=== PATIENT | male | born 1990 | race Caucasian/White ===

== ENCOUNTER 2020-06-04 18:06 | Emergency (ER) | payer BC, OTHER ==
--- NOTE | 2020-06-04 18:27 | EDM.PDOC ---
ED HPI GENERAL MEDICAL PROBLEM - General Chief Complaint: Upper Extremity Injury/Pain Stated Complaint: hand injury Time Seen by Provider: 06/04/20 18:22 - History of Present Illness INITIAL COMMENTS - FREE TEXT/NARRATIVE: 30-year-old male presents the emergency room with a left hand injury.. Patient was playing basketball and was hit in the hand by a basketball. It caught his pinky finger and now it appears deformed and every time he tries to move his other fingers this 1 hurts. Patient denies any other injury associated with this most unfortunate mishap. This occurred just before arrival to the emergency room. Left Finger-Little Pain Score (Numeric/FACES): 3 - Related Data Allergies Allergy/AdvReac Type Severity Reaction Status Date / Time No Known Allergies Allergy Verified 06/04/20 18:19 Home Meds: Home Meds . [No Known Home Meds] 06/04/20 [History] Review of Systems - Review of Systems Review Of Systems: See Below Constitutional: Reports: No Symptoms Respiratory: Reports: No Symptoms Cardiovascular: Reports: No Symptoms GI/Abdominal: Reports: No Symptoms ED EXAM, GENERAL - Physical Exam Exam: See Below Exam Limited By: No Limitations General Appearance: Alert, No Apparent Distress Respiratory/Chest: No Respiratory Distress, Lungs Clear, Normal Breath Sounds Cardiovascular: Regular Rate, Rhythm, No Edema, No Murmur Extremities: Other (Examination of the left hand shows a deformity at the left pinky finger involving the proximal interphalangeal joint. This palpates like a volar dislocation. Using gentle traction this fell right back into place the patient felt much better and additionally did hurt but this resolved quickly the patient could have some active range of motion in that digit this was limited because of discomfort. This digit was sha taped to the ring finger awaiting x-rays.) Course - Vital Signs Last Recorded V/S: Last Vital Signs Temp 36.4 C 06/04/20 18:21 Pulse 88 06/04/20 18:21 Resp 18 06/04/20 18:21 BP 134/93 H 06/04/20 18:21 Pulse Ox 97 06/04/20 18:21 - Orders/Labs/Meds Orders: Active Orders 24 hr Category Date Time Status Fingers Fifth Digit Lt F4 [CR] Stat Exams 06/04/20 18:28 Ordered - Re-Assessments/Exams Free Text/Narrative Re-Assessment/Exam: 06/04/20 18:46 Appears to have a volar dislocation of the proximal interphalangeal joint of the left pinky finger. This was reduced without difficulty awaiting x-rays the patient had his digit sha taped to the ring finger after x-rays anticipate a aluminum foam splint in full extension of the PIPJ and DIPJ. 06/04/20 19:16 X-ray examination of the digit shows good alignment of the joint no obvious fracture noted. Patient will be placed in aluminum foam splint with full extension of the PIPJ and DIPJ. Departure - Departure Time of Disposition: 19:17 Disposition: Home, Self-Care 01 Clinical Impression: Closed dislocation of left little finger - Discharge Information Referrals: PCP,None [Primary Care Provider] - Forms: ED Department Discharge Additional Instructions: Return to the emergency room with any questions problems or worsening symptoms. Wear the splint at all times. Follow-up in the hospital clinic at the end of this next week for recheck call tomorrow to make an appointment [phone]. Tylenol and Motrin if needed for discomfort. Sepsis Event Note (ED) - Focused Exam Vital Signs: Vital Signs Temp Pulse Resp BP Pulse Ox 06/04/20 18:21 36.4 C 88 18 134/93 H 97 - My Orders Last 24 Hours: My Active Orders 06/04/20 18:28 Fingers Fifth Digit Lt F4 [CR] Stat - Assessment/Plan Last 24 Hours: My Active Orders 06/04/20 18:28 Fingers Fifth Digit Lt F4 [CR] Stat
--- NOTE | 2020-06-05 07:08 | CR ---
Left fifth finger: 4 views centered to the left fifth finger were obtained. Comparison: No previous finger studies available. No dislocation is appreciated. Soft tissue swelling is noted. No acute fracture or other bony abnormality is appreciated. Impression: 1. Soft tissue swelling. 2. No acute osseous finding is appreciated. Diagnostic code #2
== END 2020-06-04 19:26 | disposition home or self-care (01) ==
LOC: JD.ED 18:06
DX: S63.287A Dislocation of proximal interphalangeal joint of left little finger, initial encounter (principal); W21.05XA Struck by basketball, initial encounter; Y93.67 Activity, basketball
CPT/HCPCS: 26770; 73140-26-F4; 73140-F4; 99283; 99283-25

== ENCOUNTER 2023-12-11 18:56 | Emergency (ER) | payer BC ==
[2023-12-11] MEDS: cefTRIAXone 1 GM, Lidocaine 1% 2.1 ML IM ONE (20:05)
[2023-12-11 20:14] LABS: BASOPHILS ABSOLUTE AUTO 0.1 K/mm3 (0.0-0.2); BASOPHILS PERCENT AUTO 0.5 % (0.0-1.0); EOSINOPHILS ABSOLUTE AUTO 0.1 K/mm3 (0.0-0.4); EOSINOPHILS PERCENT AUTO 0.9 % (0.0-6.0); HEMATOCRIT 40.8 % (42.0-52.0); HEMOGLOBIN 14.5 gm/dl (14.0-18.0); IMMATURE GRAN ABSOLUTE AUTO 0.09 K/mm3 (0.00-0.05); IMMATURE GRAN PERCENT AUTO 0.9 % (0.0-0.4); LYMPHOCYTES ABSOLUTE AUTO 1.1 K/mm3 (1.0-4.8); LYMPHOCYTES PERCENT AUTO 11.5 % (24.0-44.0); MEAN CORPUSCULAR HEMOGLOBIN 28.9 pg (28.0-32.0); MEAN CORPUSCULAR HGB CONC 35.5 g/dl (32.0-36.0); MEAN CORPUSCULAR VOLUME 81.3 fl (83.0-99.0); MEAN PLATELET VOLUME 8.5 fl (9.4-12.4); MONOCYTES ABSOLUTE AUTO 0.8 K/mm3 (0.0-0.8); MONOCYTES PERCENT AUTO 7.9 % (0.0-8.0); NEUTROPHILS ABSOLUTE AUTO 7.5 K/mm3 (1.8-7.7); NEUTROPHILS PERCENT AUTO 78.3 % (41.0-71.0); PLATELET COUNT,PLT 194 K/mm3 (150-400); RED BLOOD CELL COUNT 5.02 M/mm3 (4.52-5.90); WHITE BLOOD CELL COUNT,WBC 9.63 K/mm3 (3.9-11.3)
[2023-12-11 20:38] LABS: ALBUMIN 3.3 g/dl (3.4-5.0); BILIRUBIN TOTAL 1.2 mg/dL (0.2-1.0); BUN/CREATININE RATIO 6.4 (14-18); C-REACTIVE PROTEIN 15.41 mg/dL (<0.30); CALCIUM 8.8 mg/dL (8.5-10.1); CREATININE 1.1 mg/dL (0.7-1.3); EST CRCL DRUG DOSING (CG) 108.98 mL/min; PROTEIN TOTAL,TP 6.7 g/dl (6.4-8.2)
== END 2023-12-11 21:38 | disposition home or self-care (01) ==
LOC: JD.ED 18:56
DX: L03.314 Cellulitis of groin (principal); Z79.899 Other long term (current) drug therapy
CPT/HCPCS: 36415; 80053; 85025; 86140; 96372; 99283; J0696; J3490

== ENCOUNTER 2023-12-14 14:41 | Emergency (ER) | payer BC | END 2023-12-14 16:20 | disposition home or self-care (01) | LOC: JD.ED 14:41 | DX: R19.7 Diarrhea, unspecified (principal) | CPT/HCPCS: 99283 ==

== ENCOUNTER 2023-12-15 06:44 | Day surgery (SDC) | payer BC ==
[~2023-12-15 06:44] MED LIST: Propofol 200 MG/20 ML SDV ONE; fentaNYL 250 MCG/5 ML SDV ONE
[2023-12-15] MEDS ORDERED: Midazolam 1 MG/ML 2 ML SDV ONE (06:45)
[2023-12-15] MEDS: Lactated Ringers 1,000 ML IV SCH (07:00)
[2023-12-15] MEDS ORDERED: Propofol 200 MG/20 ML SDV ONE (07:08)
[2023-12-15] MEDS: Ondansetron 4 MG/2 ML SDV IVPUSH ONE (07:20)
[2023-12-15] MEDS ORDERED: dexmedeTOMIDine HCl 200 MCG/2 ML SDV ONE (07:24)
[2023-12-15] MEDS: Bupivacaine 0.5% 30 ML SDV ONE (07:37)
[2023-12-15] MEDS: EPINEPHrine 1 MG/ML SDV ONE (07:37)
[2023-12-15] MEDS ORDERED: Ketorolac 30 MG/ML SDV ONE (07:47)
[2023-12-15] MEDS ORDERED: oxyCODONE 5 MG Tab PO PRN (08:09)
== END 2023-12-15 09:40 | disposition home or self-care (01) ==
LOC: JD.SDS 06:44
PROVIDERS: ATTEND Surgery
DX: L02.215 Cutaneous abscess of perineum (principal); Z79.899 Other long term (current) drug therapy
CPT/HCPCS: 82947; 87070; 87075; 87205; J0171; J0665; J1885; J2250; J2405; J2704; J3010; J3490; J7120